=== PATIENT | male | born 1985 | race African-American/Black ===

== ENCOUNTER 2022-02-15 14:24 | Emergency (ER) | payer MEDICAID ==
[~2022-02-15] VITALS: Ht 177.8 cm; Wt 80.0 kg
[2022-02-15] MEDS ORDERED: LORAZEPAM 2MG/ML CPJ IM STA (14:58)
[2022-02-15] MEDS ORDERED: OLANZAPINE 10 MG/VIAL IM STA (14:58)
[2022-02-15] MEDS ORDERED: DIPHENHYDRAMINE 50MG/ML VIAL IM STA (14:58)
[2022-02-15] MEDS ORDERED: SODIUM CHLORIDE 0.9% 1,000 ML IV ONE (15:00)
[2022-02-15] MEDS ORDERED: LORAZEPAM 2MG/ML CPJ IM ONE (17:15)
[2022-02-15 18:24] LABS: BASOPHILS % 0.3 % (0.0-2.0); EOSINOPHILS % 0.5 % (0.0-5.0); HEMATOCRIT. 36.3 % (42.0-52.0); HEMOGLOBIN. 12.3 g/dL (14.0-18.0); LYMPHOCYTES % 9.7 % (20.0-50.0); MEAN CORPUSCULAR HEMOGLOBIN 29.9 pg (28.0-32.0); MEAN CORPUSCULAR VOLUME 88.2 fL (80.0-94.0); MONOCYTES % 7.8 % (2.0-8.0); NEUTROPHILS % 81.7 % (40.0-76.0); PLATELET 276 x1000/uL (130-400); RED BLOOD CELL COUNT 4.12 mill/uL (4.7-6.1); RED CELL DISTRIBUTION WIDTH 14.5 % (11.6-14.6)
[2022-02-15 18:32] LABS: CHLORIDE 105 mEq/L (98-107)
[2022-02-15 18:40] LABS: ETHANOL BLOOD < 10 mg/dL
[2022-02-15] MEDS ORDERED: LORAZEPAM 2MG/ML CPJ IV ONE (18:45)
[2022-02-16] MEDS: OLANZAPINE 5MG TABLET ODT PO SCH (10:45)
[2022-02-16] MEDS ORDERED: OLANZAPINE 10 MG/VIAL IM ONE (21:45)
[2022-02-16 22:17] LABS: CLARITY URINE CLEAR (CLEAR); COLOR URINE YELLOW (YELLOW); KETONES URINE TRACE (NEGATIVE); LEUKOCYTE ESTERASE URINE NEGATIVE (NEGATIVE); NITRITE URINE NEGATIVE (NEGATIVE); OCCULT BLOOD URINE NEGATIVE (NEGATIVE); PH URINE 7.5 (4.5-8.0); PROTEIN URINE NEGATIVE (NEGATIVE); SPECIFIC GRAVITY URINE 1.027 (1.005-1.030)
[2022-02-16 22:33] LABS: *AMPHETAMINES SCREEN URINE PRESUMTIVE POSITIVE (NEGATIVE); *BARBITURATES SCREEN URINE NEGATIVE (NEGATIVE); *BENZODIAZEPINES SCREEN URINE NEGATIVE (NEGATIVE); *COCAINE SCREEN URINE NEGATIVE (NEGATIVE); CANNABINOID URINE SCREEN NEGATIVE (NEGATIVE); METHADONE URINE SCREEN NEGATIVE (NEGATIVE); OPIATES URINE SCREEN NEGATIVE (NEGATIVE); PHENCYCLIDINE URINE SCREEN NEGATIVE (NEGATIVE)
[2022-02-17] MEDS: OLANZAPINE 5MG TABLET ODT PO SCH ×2 (09:40→21:45)
[2022-02-17] MEDS ORDERED: OLANZAPINE 10 MG/VIAL IM NR (15:15)
[2022-02-18] MEDS: OLANZAPINE 5MG TABLET ODT PO SCH (08:13)
[2022-02-18 10:50] VITALS: BP 110/60
== END 2022-02-18 11:59 | disposition home or self-care (01) ==
LOC: ER 14:45
DX: F29 Unspecified psychosis not due to a substance or known physiological condition (principal); R41.82 Altered mental status, unspecified; F22 Delusional disorders; Z20.822 Contact with and (suspected) exposure to COVID-19
CPT/HCPCS: 36415; 70450; 71045; 80053; 80305; 80307; 80320; 80329; 81001; 84484; 85025; 87426; 93005; 96361; 96372; 96374; 99285; C9803; J1200; J2060; J3490; J7030; Z7610; G0480